=== PATIENT | female | born 1980 | race Hispanic/Latino ===

== ENCOUNTER 2017-10-19 13:16 | Emergency (ER) | payer MEDICAID, SELFPAY ==
[2017-10-19] MEDS ORDERED: Lidocaine 1% PF 5 ML VIAL ONE (15:25)
[2017-10-19] MEDS ORDERED: Bacitracin Zinc 1 Packet ONE ×2 (15:25→15:47)
== END 2017-10-19 15:49 | disposition home or self-care (01) ==
LOC: ERS 13:16
DX: S01.81XA Laceration without foreign body of other part of head, initial encounter (principal); W11.XXXA Fall on and from ladder, initial encounter; Y93.H9 Activity, other involving exterior property and land maintenance, building and construction; Y99.0 Civilian activity done for income or pay
CPT/HCPCS: 12011; J2001

== ENCOUNTER 2024-06-25 07:50 | Outpatient (CLI) | payer OTHER | END 2024-06-25 07:51 | disposition home or self-care (01) | LOC: BICULT 07:50 | PROVIDERS: ATTEND Family Medicine | DX: N93.9 Abnormal uterine and vaginal bleeding, unspecified (principal); D25.1 Intramural leiomyoma of uterus; R93.89 Abnormal findings on diagnostic imaging of other specified body structures | CPT/HCPCS: 76856; 93976 ==